=== PATIENT | female | born 1960 | race Caucasian/White ===

== ENCOUNTER 2016-09-19 16:54 | Emergency (ER) | payer BC ==
[2016-09-19 17:01] VITALS: BP 131/81; BMI 40.2
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
== END 2016-09-19 18:40 | disposition home or self-care (01) ==
LOC: ER 17:04
PROC: 2W38X1Z Immobilization of Right Upper Extremity using Splint (ICD-10-PCS; principal; 2016-09-19)
DX: S60.221A Contusion of right hand, initial encounter (principal); W23.0XXA Caught, crushed, jammed, or pinched between moving objects, initial encounter; Y92.9 Unspecified place or not applicable
CPT/HCPCS: 73130; 99282